=== PATIENT | male | born 1960 | race African-American/Black ===

== ENCOUNTER 2021-11-16 09:34 | Inpatient (IN) | payer OTHER ==
[~2021-11-16] VITALS: Ht 175.3 cm; Wt 58.5 kg
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
[2021-11-16 10:05] LABS: BASOPHILS % (AUTO) 0.6 % (0.0-2.0); EOSINOPHILS % (AUTO) 1.2 % (0.0-6.0); HEMATOCRIT 43 % (39-51); HEMOGLOBIN 14.2 g/dL (13.5-17.5); LYMPHOCYTES # (AUTO) 1.4 K/uL (0.8-4.8); LYMPHOCYTES % (AUTO) 27.4 % (20.0-44.0); MEAN CORPUSCULAR HGB CONC 33 g/dl (31.0-36.0); MEAN CORPUSCULAR VOLUME 87 fL (80-96); MONOCYTES # (AUTO) 0.3 K/uL (0.1-1.30); MONOCYTES % (AUTO) 6.6 % (2.0-12.0); NEUTROPHILS # (AUTO) 3.2 K/uL (1.8-8.9); NEUTROPHILS % (AUTO) 64.2 % (43.0-81.0); PLATELET COUNT (AUTO) 179 K/uL (150-450); RED BLOOD CELL COUNT(AUTO) 4.94 MIL/uL (4.5-6.0)
[2021-11-16 10:21] LABS: ALANINE AMINOTRANSFERASE 15 U/L (12-78); ALBUMIN 3.7 g/dL (3.4-5.0); ALKALINE PHOSPHATASE 65 U/L (46-116); ASPARTATE AMINOTRANSFERASE 11 U/L (15-37); BILIRUBIN,DIRECT 0.1 mg/dL (0.0-0.2); BILIRUBIN,TOTAL 0.4 mg/dL (0.2-1.0); CALCIUM, SERUM 8.6 mg/dL (8.5-10.1); CARBON DIOXIDE 25 mmol/L (21-32); CHLORIDE 105 mmol/L (98-107); CREATININE 1.1 mg/dL (0.6-1.3); GLUCOSE 128 mg/dL (74-106); POTASSIUM 3.7 mmol/L (3.5-5.1); SODIUM SERUM 139 mmol/L (136-145); UREA NITROGEN, BLOOD 19 mg/dL (7-18)
--- NOTE | 2021-11-16 12:00 | NUR ---
MRSA SWAB DONE AND SENT TO LAB
[2021-11-16] MEDS ORDERED: LORA-259 PO (12:59)
[2021-11-16] MEDS ORDERED: APIX5TAB PO (12:59)
[2021-11-16] MEDS ORDERED: LOSA50TA39 PO (12:59)
[2021-11-16] MEDS ORDERED: AMIO200T5 PO (12:59)
[2021-11-16] MEDS ORDERED: METO25TA4 PO (12:59)
[2021-11-16] MEDS ORDERED: LORAZEPAM 1 MG TABLET PO PRN (14:30)
[2021-11-16] MEDS ORDERED: MAGNESIUM HYDROXIDE 30 ML UDC PO PRN (14:30)
[2021-11-16] MEDS ORDERED: LORAZEPAM 1 MG TABLET PO ONE (14:30)
[2021-11-16] MEDS ORDERED: TEMAZEPAM 15 MG CAPSULE PO PRN (14:30)
[2021-11-16] MEDS ORDERED: ACETAMINOPHEN 325 MG TABLET PO PRN (14:30)
[2021-11-16] MEDS ORDERED: MORPHINE SULFATE INJ 2 MG/ML DISP.SYRIN IV PRN (14:30)
[2021-11-16] MEDS ORDERED: HYDROCODONE/APAP 5/325MG TABLET PO PRN (14:30)
[2021-11-16] MEDS ORDERED: ALPRAZOLAM 0.5 MG TABLET PO PRN (14:30)
[2021-11-16] MEDS ORDERED: ONDANSETRON HCL/PF 4 MG/2 ML VIAL IVP PRN (14:30)
[2021-11-16] MEDS ORDERED: Z GUARD REMEDY 4 OZ OINT TP PRN (14:30)
[2021-11-16] MEDS ORDERED: MAG HYDROX/AL HYDROX/SIMETH 30 ML UDC PO PRN (14:30)
[2021-11-16] MEDS ORDERED: LORAZEPAM 1 MG TABLET ONE (14:37)
--- NOTE | 2021-11-16 16:20 | NUR ---
COVID SWAB DONE AND SENT TO LAB
[2021-11-16] MEDS: APIXABAN 5 MG TABLET PO SCH (17:00)
--- NOTE | 2021-11-16 18:52 | NUR ---
BED 326-1 PER NURSING SUP.
--- NOTE | 2021-11-16 20:13 | NUR ---
REPORT GIVEN TO ARVIN ORTIZ FOR AUTUMN
[2021-11-16 21:00] VITALS: BP 163/72
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
[2021-11-16 23:56] VITALS: BP 116/64
[2021-11-17 05:00] VITALS: BP 118/63
--- NOTE | 2021-11-17 06:44 | NUR ---
AIR DEFENSE SPECIALISTSHIP CARPENTER NOTE PT AWAKE IN BED. A/O X4 NO SOB OR S/S OF RESPIRATORY DISTRESS NOTED. PT STABLE ON ROOM AIR. ON EXTERNAL HEAD STRENGTH AND CONDITIONING COACH READING SB 45 BPM. PT STATED HE DOES NOT HAVE ANY PAIN AT THIS TIME. IV ACCESS L HAND 20 GAUGE SL INTACT AND PATENT. SAFETY PRECAUTIONS IN PLACE AT ALL TIMES. BED IN LOWEST LOCKED POSITION, HOB ELEVATED, SIDE RAILS UP X2, AND CALL LIGHT AND TABLE WITHIN REACH. ALL NEEDS MET AT THIS TIME. WILL ENDORSE TO ONCOMING NURSE FOR AUTUMN. Addendum: 11/17/21 at 0645 by ARVIN MURRAY RN CLOSING NOTE*
[2021-11-17 07:21] LABS: BASOPHILS % (AUTO) 0.5 % (0.0-2.0); EOSINOPHILS % (AUTO) 2.3 % (0.0-6.0); HEMATOCRIT 45 % (39-51); HEMOGLOBIN 14.8 g/dL (13.5-17.5); LYMPHOCYTES # (AUTO) 1.4 K/uL (0.8-4.8); LYMPHOCYTES % (AUTO) 27.2 % (20.0-44.0); MEAN CORPUSCULAR HGB CONC 33 g/dl (31.0-36.0); MEAN CORPUSCULAR VOLUME 87 fL (80-96); MONOCYTES # (AUTO) 0.4 K/uL (0.1-1.30); MONOCYTES % (AUTO) 7.6 % (2.0-12.0); NEUTROPHILS # (AUTO) 3.2 K/uL (1.8-8.9); NEUTROPHILS % (AUTO) 62.4 % (43.0-81.0); PLATELET COUNT (AUTO) 182 K/uL (150-450); RED BLOOD CELL COUNT(AUTO) 5.15 MIL/uL (4.5-6.0); WHITE BLOOD COUNT (AUTO) 5.2 K/uL (4.3-11.0)
[2021-11-17] MEDS ORDERED: PANTOPRAZOLE 40 MG TABLET.DR PO SCH (07:30)
--- NOTE | 2021-11-17 07:30 | NUR ---
PEANUT ROASTER CLOSING NOTES RECEIVED PT AWAKE IN BED. A/O X4 NO SOB OR S/S OF RESPIRATORY DISTRESS NOTED. PT STABLE ON ROOM AIR. ON EXTERNAL FUND CONTROLLER READING SB 45-52 BPM. NO COMPLAINTS OF PAIN AT THIS TIME. IV ACCESS L HAND 20 GAUGE SL INTACT AND PATENT. SAFETY PRECAUTIONS IN PLACE. BED IN LOWEST LOCKED POSITION, HOB ELEVATED, SIDE RAILS UP X2, AND CALL LIGHT AND TABLE WITHIN REACH. WILL CONTINUE TO MONITOR PATIENT ACCORDINGLY. Addendum: 11/17/21 at 0749 by JOSE DINH RN CORRECTION: ABOVE IS TELE OPENING NOTES.
[2021-11-17] MEDS: APIXABAN 5 MG TABLET PO SCH (08:43)
[2021-11-17 08:46] VITALS: BP 151/67
[2021-11-17 08:50] LABS: CALCIUM, SERUM 8.9 mg/dL (8.5-10.1); CREATININE 0.9 mg/dL (0.6-1.3); MAGNESIUM 2.4 mg/dL (1.8-2.4); PHOSPHORUS 3.3 mg/dL (2.5-4.9); POTASSIUM 4.3 mmol/L (3.5-5.1)
[2021-11-17] MEDS ORDERED: AMIODARONE HCL 200 MG TABLET PO SCH (09:00)
[2021-11-17] MEDS ORDERED: LOSARTAN POTASSIUM 50 MG TABLET PO SCH (09:00)
[2021-11-17 11:39] LABS: THYROID STIMULATING HORMONE 2.983 uIU/mL (0.358-3.74)
--- NOTE | 2021-11-17 13:10 | NUR ---
CARPENTER CRADLE AND DOLLY NOTES DISCHARGED PATIENT IN STABLE CONDITION. VITAL SIGNS WITHIN NORMAL LIMITS. DISCHARGE INSTRUCTIONS AND FOLLOW UP INSTRUCTED. PATIENT VERBALIZED UNDERSTANDING. IV ACCESS REMOVED. COVERED WITH GAUZE, NO BLEEDING NOTED. BELONGINGS ACCOUNTED AND SIGNED FOR. WALKED TO LOBBY SAFELY. LEFT UNIT IN STABLE CONDITION, MD AND CHARGE NURSE AWARE OF DISCHARGE.
== END 2021-11-17 13:59 | disposition home or self-care (01) | DRG 310 ==
LOC: ER 09:36 → TRANSITION 16:10 → TELE 19:03
PROVIDERS: ADMIT Nurse Practitioner Acute Care; ATTEND Nurse Practitioner Acute Care
DX: I49.5 Sick sinus syndrome (principal); I48.0 Paroxysmal atrial fibrillation; Z79.01 Long term (current) use of anticoagulants; Z20.822 Contact with and (suspected) exposure to COVID-19; I10 Essential (primary) hypertension; Z80.9 Family history of malignant neoplasm, unspecified; Z88.3 Allergy status to other anti-infective agents; Z88.0 Allergy status to penicillin; Z88.2 Allergy status to sulfonamides; K21.9 Gastro-esophageal reflux disease without esophagitis; Z79.899 Other long term (current) drug therapy; F41.9 Anxiety disorder, unspecified; R79.89 Other specified abnormal findings of blood chemistry
CPT/HCPCS: 36415; 71045-TC; 80048-TC; 80076-TC; 83735-TC; 84100-TC; 84443-TC; 84484-TC; 85025-TC; 87081-TC; 93307-TC; G0378; J2405